=== PATIENT | male | born 1945 | race Caucasian/White ===

== ENCOUNTER 2018-01-01 19:30 | Outpatient (CLI) | payer MEDICARE, BC | END 2018-01-01 19:31 | disposition home or self-care (01) | LOC: SLEEPLAB 19:30 | PROVIDERS: ATTEND Internal Medicine | DX: G47.33 Obstructive sleep apnea (adult) (pediatric) (principal); E66.09 Other obesity due to excess calories | CPT/HCPCS: 95811 ==

== ENCOUNTER 2018-12-29 15:29 | Outpatient (CLI) | payer MEDICARE, BC ==
[2018-12-29 16:15] LABS: #Basophils 0.2 thou/uL (0.0-0.2); #Eosinphils 0.1 thou/uL (0.0-0.7); #Lymphocytes 5.8 thou/uL (1.20-3.40); #Monocytes 1.1 thou/uL (0.11-0.59); #Neutrophils 5.5 thou/uL (1.40-6.50); %Basophils 1.6 % (0.0-1.0); %Eosinophils 0.9 % (0.0-10.0); %Lymphocytes 45.2 % (21.0-51.0); %Monocytes 8.8 % (0.0-10.0); %Neutrophils 43.4 % (42.0-75.0); Hemoglobin 14.9 g/dL (14.0-18.0); Mean Corpuscular HGB CONC 33.2 g/dL (32.0-36.0); Mean Corpuscular Hemoglobin 30.9 pg (27.0-31.0); Mean Corpuscular Volume 93.2 fL (78.0-98.0); Mean Platelet Volume 6.8 fL (7.4-10.4); Platelet Count 182 thou/uL (130-400); RBC Distribution Width 11.9 % (11.5-14.5); Red Blood Cell (RBC) Count 4.83 mill/uL (4.70-6.10); White Blood Cell (WBC) Count 12.7 thou/uL (4.8-10.8)
[2018-12-29 16:44] LABS: Anion Gap 14 mmol/L (10-20); BUN (Urea Nitrogen) 14 mg/dL (8.4-25.7); Calc. Creatinine Clearance 0 mL/min (70-130); Calcium 9.2 mg/dL (7.8-10.44); Carbon Dioxide 26 mmol/L (23-31); Chloride 104 mmol/L (98-107); Estimated GFR-MDRD 46; Glucose 82 mg/dL (83-110); Potassium 3.6 mmol/L (3.5-5.1); Sodium 140 mmol/L (136-145)
--- NOTE | 2018-12-31 21:20 | EKG ---
Test Reason : Blood Pressure : / mmHG Vent. Rate : 054 BPM Atrial Rate : 054 BPM P-R Int : 162 ms QRS Dur : 164 ms QT Int : 478 ms P-R-T Axes : 058 -67 052 degrees QTc Int : 453 ms Sinus bradycardia Right bundle branch block Left anterior fascicular block Bifascicular block Left ventricular hypertrophy with QRS widening Abnormal ECG When compared with ECG of 17-APR-2013 19:53, (RBBB and left anterior fascicular block) has replaced Incomplete left bundle branch block Confirmed by Lang SIMS ([id number]) on 12/31/2018 9:20:30 PM Referred By: LAWSON Confirmed By:Lang SIMS
== END 2018-12-29 15:30 | disposition home or self-care (01) ==
LOC: LABBT 15:29
PROVIDERS: ATTEND Orthopaedic Surgery
DX: Z01.818 Encounter for other preprocedural examination (principal); G56.03 Carpal tunnel syndrome, bilateral upper limbs
CPT/HCPCS: 80048; 85025; 93005; 93010

== ENCOUNTER 2019-01-12 05:56 | Day surgery (SDC) | payer MEDICARE, BC ==
[2019-01-11 08:31] VITALS: BMI 35.5
--- NOTE | 2019-01-11 13:07 | HP ---
HISTORY OF PRESENT ILLNESS: The patient is a 73-year-old male with a several year history of pain and tingling in both hands, right greater than left. He was diagnosed with carpal tunnel syndrome by nerve conduction studies by Dr. Arizmendi almost 6 years ago. He has been treated with anti-inflammatory medications and splints with partial relief, but recently his symptoms have gradually progressed and now interfering with day-to-day activities and also sleeping. PAST MEDICAL HISTORY: The patient has history of high cholesterol, reflux, hypertension, migraines, and depression. CURRENT MEDICATIONS: Include, 1. Hydrochlorothiazide. 2. Lisinopril. 3. Trintellix. 4. Duloxetine. 5. Omeprazole. 6. Carvedilol. 7. Donepezil. 8. Flomax. 9. Amlodipine. 10. Pravastatin. ALLERGIES: HE IS ALLERGIC TO PENICILLIN. FAMILY HISTORY: Otherwise unremarkable. SOCIAL HISTORY: Otherwise unremarkable. REVIEW OF SYSTEMS: Otherwise unremarkable. PHYSICAL EXAMINATION: GENERAL: Healthy male. HEENT: Unremarkable. NECK: Supple. CHEST: Clear. HEART: Regular rate and rhythm. ABDOMEN: Soft, nontender. RECTAL: Deferred. GENITAL: Deferred. EXTREMITIES: Pertinent findings related to his wrists; there is no definite swelling. No definite atrophy. There is a positive Tinel sign bilaterally, right greater than left. There is subjective numbness in the median nerve distribution. Motor exam appears to be intact. There are good distal pulses. Good capillary refill. DIAGNOSTIC STUDIES: Previous diagnostic studies performed by Dr. Arizmendi revealed moderately severe bilateral carpal tunnel syndrome. IMPRESSION: Bilateral carpal tunnel syndrome, symptomatic, more than left. PLAN: Endoscopic possible open right carpal tunnel release. He will eventually require a staged left carpal tunnel release. The nature of the surgery, length of recovery, and potential complications such as infection, loss of motion, incomplete relief, nerve injury, recurrence, and need for additional treatment and repeat surgery were discussed in detail. Job ID: [id number]
[2019-01-12] MEDS ORDERED: Clindamycin/D5W 900 mg/50 ml Premix Bag ONE (06:37)
[2019-01-12] MEDS ORDERED: Lidocaine 1% (PF) 30 ML VIAL ONE (06:47)
[2019-01-12] MEDS ORDERED: Midazolam HCl 2 mg/2 ml Vial ONE (07:36)
--- NOTE | 2019-01-12 11:44 | OP ---
DATE OF PROCEDURE: 01/12/2019 ANESTHESIA: General. PREOPERATIVE DIAGNOSIS: Right carpal tunnel syndrome. POSTOPERATIVE DIAGNOSIS: Right carpal tunnel syndrome. PROCEDURE PERFORMED: Right endoscopic carpal tunnel release. DESCRIPTION OF PROCEDURE: After satisfactory anesthesia was induced in supine position, field block with 1% lidocaine 10 mL was performed. The right arm was elevated and exsanguinated with Esmarch bandage and the tourniquet inflated to 250 mmHg. A 2 cm transverse incision was made in the proximal wrist flexion crease carried down through the subcutaneous tissues and bleeding points were controlled with Bovie cautery. Using sharp and blunt dissection, a distally based flap at the deep forearm fascia was developed and retracted distally. Palmaris longus tendon was retracted radially. Proximal edge of the deep forearm fascia was split under direct visualization with small scissors to make sure there was no proximal impingement of the median nerve. Synovial elevator was introduced beneath the transverse carpal ligament and the synovium cleaned from the under surface. Carpal tunnel dilators were inserted. The [employer] endoscopic carpal tunnel system was introduced beneath the transverse carpal ligament in-line with the ring finger. The distal edge of the ligament was easily identified and divided in a distal proximal direction by pulling the trigger of the assembly and engaging the knife and withdrawing the scope proximally. This was done in several stages to make sure there was complete division of the transverse carpal ligament, which was documented with video printer. After withdrawing the scope, the carpal tunnel dilator could be inserted into the carpal tunnel and there was markedly improved passage and subcutaneous position of the instrument. The scope was reintroduced into the carpal tunnel. There was wide separation of the two leaves of the transverse carpal ligament. The tourniquet was released after 6 minutes. There was no excessive bleeding and the scope was withdrawn. The wound was thoroughly irrigated and closed with a running subcuticular 3-0 nylon. Sterile dressing was applied. The patient was placed in a Velcro wrist splint. Awakened and taken to recovery room in stable condition. There were no apparent intraoperative complications. The estimated blood loss was negligible. The patient will be discharged home in satisfactory condition. Instructed ice and elevation. Given written wound care instructions. He was given prescription for [place] 5 for pain, 20 tablets. He will be rechecked in my office in approximately 2 weeks or sooner if there are any problems prior to that time. Job ID: [id number]
== END 2019-01-12 09:45 | disposition home or self-care (01) ==
LOC: SDC 05:56
PROVIDERS: ATTEND Orthopaedic Surgery
PROC: 01N54ZZ Release Median Nerve, Percutaneous Endoscopic Approach (ICD-10-PCS; principal; 2019-01-12)
DX: G56.03 Carpal tunnel syndrome, bilateral upper limbs (principal); I10 Essential (primary) hypertension; E78.00 Pure hypercholesterolemia, unspecified; G43.909 Migraine, unspecified, not intractable, without status migrainosus; F32.9 Major depressive disorder, single episode, unspecified; K21.9 Gastro-esophageal reflux disease without esophagitis; Z98.890 Other specified postprocedural states; Z88.0 Allergy status to penicillin; Z79.899 Other long term (current) drug therapy
CPT/HCPCS: J2001; J2250; J3490

== ENCOUNTER 2019-02-25 08:24 | Outpatient (CLI) | payer MEDICARE, BC ==
--- NOTE | 2019-02-25 14:15 | CT ---
CT CHEST WITH IV CONTRAST: Date: 02/25/2019. PROVIDED CLINICAL HISTORY: Lymphoma. FINDINGS: Comparison is made with the CT examination performed 02/06/2014. The heart, pericardium, and great vessels demonstrate an unremarkable CT appearance with the exceptio n of vascular calcification including coronary calcium. There is no evidence for thoracic lymph node enlargement. The airway appears patent and of normal caliber. The lungs appear of significant opacity. There is no pleural fluid or pneumothorax apparent. The visualized portions of the upper abdomen demonstrate no significant abnormality. The osseous structures demonstrate no concerning lytic or blastic lesions. Thoracic spine degenerati ve changes and compression deformity status post vertebroplasty noted at T12. IMPRESSION: No evidence for thoracic lymph node enlargement or other acute process. POS: [facility]
[2019-02-25] MEDS ORDERED: ISOVUE-370 76%-LOCM 1 ML ONE (15:42)
== END 2019-02-25 08:25 | disposition home or self-care (01) ==
LOC: BICCT 08:24
PROVIDERS: ATTEND Internal Medicine Hematology & Oncology
DX: C85.81 Other specified types of non-Hodgkin lymphoma, lymph nodes of head, face, and neck (principal)
CPT/HCPCS: 71260

== ENCOUNTER 2019-04-08 09:29 | Outpatient (CLI) | payer MEDICARE, BC ==
--- NOTE | 2019-04-08 11:14 | MRI ---
EXAM: MRI Thoracic Spine WO Con PROVIDED CLINICAL HISTORY: Thoracic radiculitis COMPARISON: None FINDINGS: Thoracic alignment appears normal. Inferior endplate compression deformity involving T12 status post vertebroplasty. Vertebral body heights appear otherwise preserved. No focal concerning regional marrow signal abnormality. Multilevel thoracic disc degenerative change with disc space narrowing mos t pronounced at the T6-7 and T11-12 levels. There is facet arthritis right of midline at T2-3 producing right foraminal narrowing. There is bilateral facet arthritis at T10-11 and T11-12 with left foraminal narrowing at T10-11 and b ilateral foraminal narrowing at T11-12. There is a broad-based disc bulge at both T10-11 and T11-12 with mild central canal stenosis at T11-12. The thoracic spinal cord demonstrates normal signal and morphology. IMPRESSION: Thoracic disc and facet degenerative changes producing primarily foraminal narrowing as described.
--- NOTE | 2019-04-08 11:14 | MRI ---
EXAM: MRI lumbar spine without contrast HISTORY: Low back and left leg pain COMPARISON: None TECHNIQUE: Multiple planar multisequence MR images were obtained of the lumbar spine without contrast . FINDINGS: The lumbar vertebral bodies and intervertebral discs demonstrate normal height and alignment without fracture or subluxation. There is a compression fracture of the T12 vertebral body. This is better described on the T-spine MRI. A small cyst is seen in the right kidney. The prevertebral and paraspinal soft tissues are otherwise unremarkable. A well-circumscribed focus of high T2 signal in the L2 vertebral body likely represents a hemangioma. No other marrow signal abnormality is present. The conus medullaris terminates normally at T12/L1. T12/L1: A minimal disc osteophyte complex is seen. No posterior facet arthrosis. No central canal s tenosis. No neural foraminal stenosis L1/2: A small generalized concentric disc bulge is seen. No posterior facet arthrosis. No central c anal stenosis. Mild bilateral neural foraminal stenosis L2/3: A small generalized concentric disc bulge is seen. Moderate bilateral posterior facet arthrosi s. Mild central canal stenosis. Mild to moderate bilateral neural foraminal stenosis L3/4: A small disc osteophyte complex is seen. Mild bilateral posterior facet arthrosis. No central canal stenosis. Moderate bilateral neural foraminal stenosis L4/5: A small generalized concentric disc bulge is seen. No posterior facet arthrosis. No central c anal stenosis. Moderate bilateral neural foraminal stenosis L5/S1: A minimal generalized concentric disc bulge is seen. Severe bilateral posterior facet arthros is. There is a 7 mm synovial cyst adjacent to the left posterior facet within the central canal. Moderate central canal stenosis. Severe bilateral neural foraminal stenosis IMPRESSION: Degenerative changes of the lumbar spine as above.
== END 2019-04-08 09:30 | disposition home or self-care (01) ==
LOC: TBSIIMAG 09:29
PROVIDERS: ATTEND Nurse Practitioner Family
DX: M47.24 Other spondylosis with radiculopathy, thoracic region (principal); M48.04 Spinal stenosis, thoracic region; M47.26 Other spondylosis with radiculopathy, lumbar region
CPT/HCPCS: 72146; 72148

== ENCOUNTER 2020-12-16 20:30 | Emergency (ER) | payer MEDICARE, BC ==
[2020-12-16 21:01] LABS: #Basophils 0.2 thou/uL (0.0-0.2); #Eosinphils 0.2 thou/uL (0.0-0.7); #Monocytes 1.1 thou/uL (0.11-0.59); #Neutrophils 5.5 thou/uL (1.40-6.50); %Basophils 2.2 % (0.0-1.0); %Eosinophils 1.8 % (0.0-10.0); %Lymphocytes 30.2 % (21.0-51.0); %Monocytes 10.9 % (0.0-10.0); %Neutrophils 54.9 % (42.0-75.0); Hemoglobin 16.2 g/dL (14.0-18.0); Mean Corpuscular HGB CONC 35.4 g/dL (32.0-36.0); Mean Corpuscular Hemoglobin 32.8 pg (27.0-31.0); Mean Corpuscular Volume 92.6 fL (78.0-98.0); Mean Platelet Volume 6.7 fL (7.4-10.4); Platelet Count 124 thou/uL (130-400); RBC Distribution Width 11.6 % (11.5-14.5); Red Blood Cell (RBC) Count 4.94 mill/uL (4.70-6.10)
[2020-12-16 21:27] LABS: ALT (SGPT) 18 U/L (8-55); AST (SGOT) 16 U/L (5-34); Albumin 3.7 g/dL (3.4-4.8); Alkaline Phosphatase 63 U/L (40-110); Anion Gap 13 mmol/L (10-20); BUN (Urea Nitrogen) 21 mg/dL (8.4-25.7); Bilirubin, Total 1.1 mg/dL (0.2-1.2); Calc. Creatinine Clearance 0 mL/min (70-130); Calcium 8.6 mg/dL (7.8-10.44); Carbon Dioxide 25 mmol/L (23-31); Chloride 99 mmol/L (98-107); Globulin 2.4 g/dL (2.4-3.5); Glucose 105 mg/dL (83-110); Potassium 3.4 mmol/L (3.5-5.1); Protein, Total 6.1 g/dL (5.8-8.1); Sodium 134 mmol/L (136-145)
[2020-12-16] MEDS ORDERED: HYDROcodone/Acetaminophen 5/325 mg Tablet ONE (22:02)
[2020-12-16] MEDS ORDERED: Acyclovir 800 mg Tablet PO SCH (22:15)
== END 2020-12-16 22:35 | disposition home or self-care (01) ==
LOC: ERS 20:30
DX: B02.9 Zoster without complications (principal); M54.5 Low back pain; I10 Essential (primary) hypertension; E78.00 Pure hypercholesterolemia, unspecified; F17.290 Nicotine dependence, other tobacco product, uncomplicated
CPT/HCPCS: 36415; 80053; 85025; 99283

== ENCOUNTER 2020-12-21 09:26 | Outpatient (CLI) | payer MEDICARE, BC | END 2020-12-21 09:27 | disposition home or self-care (01) | LOC: SCSMRI 09:26 | PROVIDERS: ATTEND Orthopaedic Surgery | DX: M43.17 Spondylolisthesis, lumbosacral region (principal); M47.814 Spondylosis without myelopathy or radiculopathy, thoracic region; M47.812 Spondylosis without myelopathy or radiculopathy, cervical region; Z98.890 Other specified postprocedural states | CPT/HCPCS: 72146; 72148 ==

== ENCOUNTER 2022-05-04 15:03 | Emergency (ER) | payer MEDICARE, BC | END 2022-05-04 17:10 | disposition home or self-care (01) | LOC: ERS 15:03 | DX: S60.221A Contusion of right hand, initial encounter (principal); I10 Essential (primary) hypertension; F17.290 Nicotine dependence, other tobacco product, uncomplicated; W22.8XXA Striking against or struck by other objects, initial encounter ==

== ENCOUNTER 2022-06-27 09:20 | Day surgery (SDC) | payer MEDICARE, BC ==
[2022-06-26 14:15] VITALS: BMI 35.5
[2022-06-27] MEDS ORDERED: Acetaminophen 500 MG TAB ONE ×3 (09:54→09:57)
[2022-06-27] MEDS ORDERED: Levofloxacin 500 mg/D5W 100 ml Premix Bag ONE (09:54)
[2022-06-27] MEDS ORDERED: Lidocaine 1% MPF 2 ML VIAL ONE (09:54)
[2022-06-27] MEDS ORDERED: Bupivacaine HCl 0.5%/Epinephrine 1:200,000/PF 30 ml Vial ONE (11:17)
[2022-06-27] MEDS ORDERED: fentaNYL PF 100 MCG/2 ML SYRINGE ONE (11:21)
[2022-06-27] MEDS ORDERED: PROPOFOL 200 MG/20 ML VIAL ONE (11:43)
[2022-06-27] MEDS ORDERED: Dexamethasone 20 MG/5 ML VIAL ONE (11:43)
[2022-06-27] MEDS ORDERED: Ondansetron PF 4 MG/2 ML Vial ONE (11:43)
[2022-06-27] MEDS ORDERED: GLYCOPYRROLATE/PF 0.2 MG/ML VIAL ONE (11:43)
[2022-06-27] MEDS ORDERED: Rocuronium Bromide 10 MG/ML (10ML VIAL) ONE (11:43)
[2022-06-27] MEDS ORDERED: NEOSTIGMINE 3 MG/3 ML SYR 3 MG/3 ML SYRINGE ONE (11:43)
[2022-06-27] MEDS ORDERED: Bupivacaine/Epinephrine 0.25% 30 ML VIAL ONE (12:11)
[2022-06-27] MEDS ORDERED: Lidocaine 1% PF 5 ML VIAL ONE (12:11)
[2022-06-27] MEDS ORDERED: Lidocaine 2% PF 5 ML VIAL ONE (12:11)
[2022-06-27] MEDS ORDERED: FENTANYL 50 MCG/ML 1 ML VIAL ONE ×2 (12:46→13:08)
== END 2022-06-27 14:25 | disposition home or self-care (01) ==
LOC: SDC 09:20
PROVIDERS: ATTEND Specialist
PROC: 0FT44ZZ Resection of Gallbladder, Percutaneous Endoscopic Approach (ICD-10-PCS; principal; 2022-06-27)
DX: K80.12 Calculus of gallbladder with acute and chronic cholecystitis without obstruction (principal); K66.0 Peritoneal adhesions (postprocedural) (postinfection); C81.90 Hodgkin lymphoma, unspecified, unspecified site; I10 Essential (primary) hypertension; E78.00 Pure hypercholesterolemia, unspecified; K21.9 Gastro-esophageal reflux disease without esophagitis; F17.220 Nicotine dependence, chewing tobacco, uncomplicated; Z79.82 Long term (current) use of aspirin; Z79.899 Other long term (current) drug therapy; Z88.0 Allergy status to penicillin; Z95.0 Presence of cardiac pacemaker; Z95.5 Presence of coronary angioplasty implant and graft; Z98.1 Arthrodesis status
CPT/HCPCS: 47562; 93005; C1889 ×2; J3010; 88304; 93010; J1100; J1956; J2001; J2405; J2704; J3490

== ENCOUNTER 2023-03-19 11:31 | Outpatient (CLI) | payer MEDICARE, BC | END 2023-03-19 11:32 | disposition home or self-care (01) | LOC: RAD 11:31 | PROVIDERS: ATTEND Specialist | DX: Z01.811 Encounter for preprocedural respiratory examination (principal); I51.7 Cardiomegaly | CPT/HCPCS: 71045 ==

== ENCOUNTER 2023-04-01 09:01 | Outpatient (CLI) | payer MEDICARE, BC | END 2023-04-01 09:02 | disposition home or self-care (01) | LOC: MRI 09:01 | PROVIDERS: ATTEND Specialist | DX: M47.22 Other spondylosis with radiculopathy, cervical region (principal); M50.123 Cervical disc disorder at C6-C7 level with radiculopathy; Z98.1 Arthrodesis status | CPT/HCPCS: 72141 ==